=== PATIENT | female | born 1955 | race Caucasian/White ===

== ENCOUNTER 2020-05-27 08:26 | Observation (INO) | payer BC ==
[2020-05-23 12:29] LABS: BASOPHILS % (AUTO) 0.6 % (0-1); EOSINOPHILS # (AUTO) 0.2 X10'3 (0-0.9); EOSINOPHILS % (AUTO) 2.2 % (0-6); LYMPHOCYTES # (AUTO) 2.8 X10'3 (1.1-4.8); LYMPHOCYTES % (AUTO) 39.1 % (21-51); MEAN CORPUSCULAR HEMOGLOBIN 29.5 PG (27.0-31.0); MEAN CORPUSCULAR HGB CONC 32.7 g/dL (33.0-36.5); MEAN PLATELET VOLUME 8.2 FL (7.4-10.4); MONOCYTES # (AUTO) 0.6 X10'3 (0-0.9); MONOCYTES % (AUTO) 8.2 % (2-12); NEUTROPHILS # (AUTO) 3.6 X10'3 (1.8-7.7); NEUTROPHILS % (AUTO) 49.9 % (42-75); PRE OP HEMATOCRIT 38.9 % (35.0-45.0); PRE OP HEMOGLOBIN 12.7 g/dL (12.0-16.0); PRE OP PLATELET COUNT 287 X10'3 (140-440); RED BLOOD COUNT 4.32 X10'6 (4.20-5.60); RED CELL DISTRIBUTION WIDTH 13.5 % (11.5-14.5)
[2020-05-23 12:47] LABS: ALBUMIN 3.6 G/DL (3.4-5.0); ALBUMIN/GLOBULIN RATIO 0.8 (1.1-1.5); ALKALINE PHOSPHATASE 92 IU/L (46-116); BLOOD UREA NITROGEN 16 MG/DL (7-18); BUN/CREATININE RATIO 14.4 (6.6-38.0); CALCIUM 9.2 MG/DL (8.5-10.1); CHLORIDE 104 MMOL/L (99-107); CREATININE 1.11 MG/DL (0.40-0.90); PRE OP ALT 20 U/L (30-65); PRE OP ANION GAP 9 (8-16); PRE OP AST 22 U/L (10-37); PRE OP BILIRUB, TOTAL 0.4 MG/DL (0.0-1.0); PRE OP GLUCOSE 91 MG/DL (70-104); PRE OP POTASSIUM 3.8 MMOL/L (3.4-5.1); PRE OP SODIUM 139 MMOL/L (135-145); TOTAL CARBON DIOXIDE 26.4 MMOL/L (24-32); eGFR 50 ML/MIN
[2020-05-27] VITALS (17 sets, daily range): BP systolic 116–147; BP diastolic 48–77
[~2020-05-27] VITALS: Ht 157.5 cm; Wt 88.3 kg
[~2020-05-27 08:26] MED LIST: ALBU8.5H8 INH; IBUP-1985 PO; MIDAZolam 5mg/5ml vial ONE; MOME13HF2 INH; MV-M1TAB69 PO; ROPIVAcaine 0.5% (5mg/ml) 30ml vial ONE; TRAM50TA2 PO; VANCOMYCIN 1,500MG inj. 1,500 MG in normal saline 500ml IV soln 500 ML IV ONE; ceFAZolin 2gm in dextrose, iso 50 ML IV ONE; famotidine 20mg tablet PO ONE; fentaNYL/PF 50MCG/1 ML 2ML syringe ONE; propofol inj 20 ML IV ONE; ringers solution, lacted 1,000 ML IV SCH; sevoflurane 250ml liquid IH ONE; tranexamic acid inj. 900 MG in normal saline 100ml IV soln 100 ML IV ONE
[2020-05-27] MEDS ORDERED: ringers solution, lacted 1,000 ML IV SCH (08:46)
[2020-05-27] MEDS ORDERED: ROPIVAcaine 0.2%/PF PUMP/bolus 550 ML INTERSCALE SCH (08:46)
[2020-05-27] MEDS ORDERED: ketorolac trometh. 30mg/ml inj. ONE (08:49)
[2020-05-27] MEDS ORDERED: ROPIVAcaine 0.2% (10 MG/5 ML) BOLUS INJECTION INTERSCALE PRN (08:50)
[2020-05-27] MEDS ORDERED: morphine 4 MG/ML inj SYRINge IV PRN (08:50)
[2020-05-27] MEDS ORDERED: morphine 2 MG/ML inj. syringe IV PRN (08:50)
[2020-05-27] MEDS ORDERED: ondansetron/PF 4mg/2ml inj IV PRN ×2 (08:50→10:05)
[2020-05-27] MEDS ORDERED: meperidine/PF 25mg/ml syringe IV PRN ×3 (08:50)
--- NOTE | 2020-05-27 09:50 | NUR ---
Received from OR via BED, accompanied by Anesthesiologist BIANCA and report given by Anesthesiolgist. PT DROWSY, OXYGENATING WELL ON 10 LPM O2 VIA MASK, NO RESP DISTRESS NOTED. PT DENIES NAUSEA OR PAIN, HAD RISB. RUE IN SLING. ABLE TO MOVE FINGERS ON RIGHT HAND. RADIAL PULSE PALPABLE BILAT. ISLAND DSG TO R SHOULDER CDI, WRAP AND POWDER PACK IN PLACE. SCDS ON, VSS.
[2020-05-27] MEDS ORDERED: diphenhydrAMINE 25mg capsule PO PRN ×2 (10:05)
[2020-05-27] MEDS ORDERED: HYDROmorphone 1 mg/ml syringe IV PRN (10:05)
[2020-05-27] MEDS ORDERED: non-formulary drug (Ibuprofen 1 TAB) PO PRN (10:05)
[2020-05-27] MEDS ORDERED: magnesium hydroxide 30ml (MOM) UD suspension PO PRN (10:05)
[2020-05-27] MEDS ORDERED: bisacodyl 10mg suppository rectal RC PRN (10:05)
[2020-05-27] MEDS ORDERED: HYDROmorphone inj. 0.5 MG/0.5 ML DISP.SYRIN IV PRN (10:05)
[2020-05-27] MEDS ORDERED: acetaminophen 325mg tablet PO PRN (10:05)
[2020-05-27] MEDS ORDERED: traMADol 50MG tablet PO PRN (10:05)
[2020-05-27] MEDS ORDERED: oxyCODONE IR 5mg (immed. release) tablet PO PRN ×2 (10:05)
--- NOTE | 2020-05-27 11:05 | NUR ---
Report called to receiving nurse. Transferred via BED Belongings WITH PT, 1 BAG OF BELONGINGS AND GLASSES. NO PAIN, VSS. TOLERATING PO FLUIDS WELL. TRANSFERRED TO ORTHO FLOOR IN STABLE CONDITION. Special Issues communicated to receiving nurse.
--- NOTE | 2020-05-27 11:45 | NUR ---
Received pt. to room 4024B, alert and oriented, given the call light, some ice chips, explained the onQ to her. OnQ Set at 2 at this time. Having no pain.
[2020-05-27] MEDS ORDERED: tranexamic acid inj. 900 MG in normal saline 100ml IV soln 100 ML IV ONE (13:00)
[2020-05-27] MEDS: acetaminophen 325mg tablet PO SCH ×2 (15:06→20:29)
[2020-05-27] MEDS: potassium cl 20mEq in 1/2 NS 1,000 ML IV SCH ×2 (15:07→20:33)
[2020-05-27] MEDS: ceFAZolin 1GM/D5W- ADD-VANTAGE 50 ML IV SCH (17:47)
--- NOTE | 2020-05-27 18:29 | NUR ---
RECEIVED REPORT FROM CECILIO GILBERT AND ASSUMED PATIENT CARE
--- NOTE | 2020-05-27 18:38 | NUR ---
Problems reprioritized. Patient report given, questions answered & plan of care reviewed with Dian GILBERT.
[2020-05-27] MEDS ORDERED: vancomycin/NS 1 GM ADD-VANTAGE 250 ML IV SCH (20:00)
[2020-05-27] MEDS ORDERED: sennosides 8.6mg tablet PO SCH (21:00)
[2020-05-28] MEDS: acetaminophen 325mg tablet PO SCH ×2 (01:57→09:32)
[2020-05-28] MEDS: ceFAZolin 1GM/D5W- ADD-VANTAGE 50 ML IV SCH (01:57)
[2020-05-28] MEDS: potassium cl 20mEq in 1/2 NS 1,000 ML IV SCH (02:01)
[2020-05-28 06:00] VITALS: BP 110/57
--- NOTE | 2020-05-28 06:07 | NUR ---
REPORT GIVEN TO DILIP GILBERT
--- NOTE | 2020-05-28 06:10 | NUR ---
Patient in room ORTHO 4024. I have received report from Dian and had the opportunity to ask questions and assume patient care.
[2020-05-28] MEDS ORDERED: ONQPUMP ADDCANAL (06:39)
[2020-05-28 06:49] LABS: BASOPHILS % (AUTO) 0.6 % (0-1); EOSINOPHILS # (AUTO) 0.1 X10'3 (0-0.9); HEMATOCRIT 33.5 % (35.0-45.0); HEMOGLOBIN 11.2 g/dl (12.0-16.0); LYMPHOCYTES # (AUTO) 2.3 X10'3 (1.1-4.8); LYMPHOCYTES % (AUTO) 25.9 % (21-51); MEAN CORPUSCULAR HEMOGLOBIN 30.1 PG (27.0-31.0); MEAN CORPUSCULAR HGB CONC 33.3 g/dL (33.0-36.5); MEAN CORPUSCULAR VOLUME 90.3 FL (78-98); MEAN PLATELET VOLUME 8.6 FL (7.4-10.4); MONOCYTES # (AUTO) 0.6 X10'3 (0-0.9); MONOCYTES % (AUTO) 7.3 % (2-12); NEUTROPHILS # (AUTO) 5.7 X10'3 (1.8-7.7); NEUTROPHILS % (AUTO) 65.2 % (42-75); PLATELET COUNT 221 X10'3 (140-440); RED BLOOD COUNT 3.71 X10'6 (4.20-5.60); RED CELL DISTRIBUTION WIDTH 13.7 % (11.5-14.5); WHITE BLOOD COUNT 8.7 X10'3 (4.5-11.0)
[2020-05-28 07:03] LABS: ANION GAP 11 (8-16); CHLORIDE 108 MMOL/L (99-107); POTASSIUM 4.3 MMOL/L (3.5-5.1); SODIUM 142 MMOL/L (135-145); TOTAL CARBON DIOXIDE 23.5 MMOL/L (24-32)
[2020-05-28] MEDS ORDERED: aspirin 325mg tablet PO SCH (08:30)
--- NOTE | 2020-05-28 10:15 | NUR ---
Reviewed discharge instructions with pt. Pt verbalized understanding. Pt was dressed and wheeled downstairs to be driven home. Pt is alert, oriented and does not have c/o of discomfort at this time.
[2020-05-29] MEDS ORDERED: acetaminophen 325mg tablet PO PRN (10:05)
== END 2020-05-28 10:15 | disposition home or self-care (01) ==
LOC: PAS 08:26 → ORTHO 4S 10:04
PROVIDERS: ADMIT Orthopaedic Surgery; ATTEND Orthopaedic Surgery
DX: S42.221A 2-part displaced fracture of surgical neck of right humerus, initial encounter for closed fracture (principal); J45.909 Unspecified asthma, uncomplicated; Z79.899 Other long term (current) drug therapy; X58.XXXA Exposure to other specified factors, initial encounter; Y93.89 Activity, other specified; Y92.89 Other specified places as the place of occurrence of the external cause
CPT/HCPCS: 23615; 36415; 73030; 76000; 80051; 80053; 82948; 85025; 87081; 93005; 96365; 96366; 96367; 96368; 97161; 97530; C1713; C1762; G0378; J0690; J1885; J2250; J2704; J2795; J3010; J3370; J7040; J7120; A4565; A4618; A6449; A7000; J3480